=== PATIENT | male | born 1945 | race Two or more races ===

== ENCOUNTER → 2024-06-05 | Outpatient (CLI) | payer OTHER, SELFPAY ==
--- NOTE | 2024-06-05 12:58 | XR_ITS ---
Examination: PA lateral chest 2 views TECHNIQUE: Upright PA lateral chest 2 views Exam date and time: June 05, 2024 1312 hours Comparison January 07, 2024 INDICATIONS: Diagnosis pulmonary coccidiomycosis FINDINGS: Parenchymal disease left upper lobe again noted No interval infiltrates Normal heart size IMPRESSION: Stable parenchymal disease left upper lobe
== END | disposition home or self-care (01) ==
PROVIDERS: PCP Internal Medicine; Referring Provider Specialist; Visit Provider Specialist
DX: R91.8 Other nonspecific abnormal finding of lung field (principal)
CPT/HCPCS: 71046

== ENCOUNTER → 2024-08-21 | Outpatient (CLI) | payer OTHER, SELFPAY ==
[2024-08-21 09:45] LABS: Coccid Serology, CF (UCD)* See Sep Rpt
--- NOTE | 2024-08-21 10:37 | XR_ITS ---
Examination: PA lateral chest 2 views TECHNIQUE: Upright PA lateral chest 2 views Exam date and time: August 21, 2024 10:59 AM Comparison June 05, 2024 INDICATIONS: Diagnosis coccidiomycosis FINDINGS: Stable parenchymal scarring left upper lobe Right lung clear Normal heart size IMPRESSION: Stable parenchymal scarring left upper lobe
== END | disposition home or self-care (01) ==
PROVIDERS: PCP Internal Medicine; Referring Provider Specialist; Visit Provider Radiology Diagnostic Radiology
DX: J98.4 Other disorders of lung (principal); B38.1 Chronic pulmonary coccidioidomycosis
CPT/HCPCS: 71046; 86171